=== PATIENT | female | born 1965 | race Caucasian/White ===

== ENCOUNTER 2017-09-07 09:24 | Emergency (ER) | payer BC ==
[~2017-09-07] VITALS: Ht 157.5 cm; Wt 61.0 kg
[2017-09-07 09:31] VITALS: BP 167/81; PULSE 84; RESP 16; TEMP 97.5; O2SAT 100
[2017-09-07] MEDS ORDERED: LIDOCAINE 1%/EPINEPHrine 1:100,000 SOLN 20 ML VIAL INFIL ONE (10:15)
[2017-09-07] MEDS ORDERED: LIDOCAINE 2%/EPINEPHrine PF 1:200,000 20ML SDV INFIL ONE (10:30)
--- NOTE | 2017-09-07 10:41 | PD ---
HPI Chief Complaint: Skin Problem Time Seen by Provider: 09:35 Travel History International Travel<30 days: No Contact w/Intl Traveler<30days: No Traveled to known affect area: No History of Present Illness HPI This is a 52-year-old female here with abscess to left groin/suprapubic region 3 days. She reports that she may have been bit by an insect. She denies fever or chills. She reports the area has become increasingly more painful red and swollen. No drainage. There is moderate. No aggravating or alleviating factors. PFSH Past Medical History Medical History: Denies Significant Hx ?: Not Past Surgical History Section: Yes Cholecystectomy: Yes Gynecologic Surgery: Yes (OVARY REMOVED) Social History Alcohol Use: Yes (BEER [employer]LY) Tobacco Use: No Substance Use: No Allergies-Medications (Allergen,Severity, Reaction): Coded Allergies: Penicillins (Verified Allergy, Unknown, 09/07/17) diphenhydramine (Verified Allergy, Unknown, 09/07/17) tramadol (Verified Allergy, Unknown, 09/07/17) Reported Meds & Prescriptions Reported Meds & Active Scripts Active No Active Prescriptions or Reported Medications Review of Systems Except as stated in HPI: all other systems reviewed are Neg General / Constitutional: No: Fever Eyes: No: Visual changes HENT: No: Headaches Cardiovascular: No: Chest Pain or Discomfort Respiratory: No: Shortness of Breath Gastrointestinal: No: Abdominal Pain Genitourinary: No: Dysuria Musculoskeletal: No: Pain Neurologic: No: Weakness Physical Exam Narrative GENERAL: Alert and well-appearing 52-year-old female SKIN: Warm and dry. Left suprapubic region 3 x 3 cm area of erythema and induration with central fluctuance. The area is Nonpulsatile. HEAD: Normocephalic. CARDIOVASCULAR: Regular rate and rhythm RESPIRATORY: Breath sounds equal bilaterally. No accessory muscle use. GASTROINTESTINAL: Abdomen soft, non-tender, nondistended. MUSCULOSKELETAL: No cyanosis, or edema. Data Data Last Documented VS Vital Signs Date Time Temp Pulse Resp B/P (MAP) Pulse Ox O2 Delivery O2 Flow Rate FiO2 09/07/17 09:31 97.5 84 16 167/81 (109) 100 Orders Orders Lidoca-Epi Pf 2%-1:200,000 Inj (Xylocain (09/07/17 10:30) MDM Medical Decision Making Medical Screen Exam Complete: Yes Emergency Medical Condition: Yes Differential Diagnosis Abscess, cellulitis, folliculitis Narrative Course This is a 52-year-old female here with abscess to the left suprapubic region 3 days. Upon entering the room to perform incision and drainage the abscess spontaneously drained on its own. Light pressure was applied to express the purulence. Patient refused any further instrumentation. I believe the area was effectively drained. She'll be discharged home on clindamycin. Diagnosis Primary Impression: Abscess Referrals: Primary Care Physician Additional Instructions: Wash the area daily with soap and warm water. Antibiotics as prescribed. Follow-up with her primary doctor. Scripts Clindamycin (Clindamycin) 300 Mg Cap 300 MG PO Q6H for Infection for 10 Days, #40 CAP 0 Refills Prov: Gi Fernandez 09/07/17 Disposition: 01 DISCHARGE HOME Condition: Stable Gi Fernandez Sep 07, 2017 10:41
[2017-09-07] MEDS ORDERED: CLIN300C5 PO (11:17)
== END 2017-09-07 11:41 | disposition home or self-care (01) ==
LOC: PHED 09:24
DX: L02.214 Cutaneous abscess of groin (principal)
CPT/HCPCS: 99283